=== PATIENT | male | born 1995 | race African-American/Black ===

== ENCOUNTER 2017-10-10 11:12 | Emergency (ER) | payer OTHER ==
[~2017-10-10] VITALS: Ht 175.3 cm; Wt 83.0 kg
[2017-10-10] MEDS ORDERED: FLEXERIL PO (11:54)
[2017-10-10 12:16] VITALS: BP 154/68
== END 2017-10-10 12:17 | disposition home or self-care (01) ==
LOC: M.ERS 11:12
DX: M54.5 Low back pain (principal); I10 Essential (primary) hypertension; F17.200 Nicotine dependence, unspecified, uncomplicated; F12.10 Cannabis abuse, uncomplicated